=== PATIENT | male | born 1950 | race Caucasian/White ===

== ENCOUNTER → 2018-02-08 | Day surgery (SDC) | payer OTHER, MEDICARE ==
[~2018-02-08] VITALS: Ht 180.3 cm; Wt 99.8 kg
[~2018-02-08] MED LIST: ALBUTEROL0.09 MG/A1 INH; AMOXIL 875 MG875 MG PO; ATENOLOL50 MG PO; BUSPIRONE HCL15 MG PO; MOTRIN 600 MG600 MG PO; PREDNISONE 20MG20 MG PO; TAMSULOSIN HYD0.4 MG PO; TESSALON PERLE100 MG PO
--- NOTE | 2018-02-08 16:05 | Operative Report ---
Operative/Inv Procedure Report Surgery Date: 02/08/18 Name of Procedure: right renal ESWL: cysto-right stent removal Pre-Operative Diagnosis: right renal stones and stent. Post-Operative Diagnosis: same Estimated Blood Loss: scant Surgeon/Industrial Plant Custodian: Deep Roblero MD Anesthesia: moderate sedation IV Fluids: rocephin 1gm iv Specimens: right stent Complications: none Operative/Procedure Note Note: The patient was taken to the operating room placed on the OR table in supine position. Timeout was performed, with the patient awake, in order to confirm correct procedure, laterality, anesthesia, and other pertinent perioperative information. After adequate anesthesia and antibiotics, the patient was then positioned over the ESWL table cutout overlying the treatment dome. Fluoroscopy, using AP and oblique views, as well as renal ultrasound, or performed in order to locate the stone. The position of the RIGHT renal stone was optimized, and positioned in the middle of the ESWL crosshairs. The stone was measured to be approximately 5 mm in size. ESWL was initiated at low power, and after 200 shockwaves delivered , noting the patient's tolerance to the shockwaves, the power was increased to maximum. At the end of 2500 shockwaves, fluoroscopy confirms the change in consistency of the stone, indicating shattering of the stone. The patient was then frog legged, draped and prepped in the usual surgical fashion. 22 Pashto cystoscope sheath with a 30 angle lens was inserted into the bladder without difficulty. The left stent was visualized, and grasped with alligator forceps. The cystoscope along with entire stent was removed without difficulty with fluoroscopic visualization. All sponge needle and instrument count were correct at the end of the case. The patient tolerated the procedures well, and was taken to the recovery room in satisfactory condition. The patient is discharged home with pain medication, and follow-up instructions with in 2-3 weeks' time. Discharge Disposition: Same Day Admissions CC: Deep Roblero MD
== END ==
LOC: STS 02:18
DX: N20.0 Calculus of kidney (principal); I10 Essential (primary) hypertension; G47.33 Obstructive sleep apnea (adult) (pediatric)
CPT/HCPCS: J0696; J2250